=== PATIENT | male | born 1945 | race Two or more races ===

== ENCOUNTER 2018-01-14 17:50 | Emergency (ER) | payer SELFPAY ==
[~2018-01-14] VITALS: Ht 177.8 cm; Wt 80.0 kg
[2018-01-14] MEDS ORDERED: CLON1TAB PO (17:57)
[2018-01-14 20:30] VITALS: BP 123/67
[2018-01-14 20:48] LABS: BASOPHILS % 1.1 % (0.0-2.0); EOSINOPHILS % 3.2 % (0.0-5.0); HEMATOCRIT. 28.7 % (42.0-52.0); HEMOGLOBIN. 10.1 g/dL (14.0-18.0); LYMPHOCYTES % 18.3 % (20.0-50.0); MEAN CORPUSCULAR HEMOGLOBIN 32.7 pg (28.0-32.0); MONOCYTES % 7.6 % (2.0-8.0); NEUTROPHILS % 69.8 % (40.0-76.0); PLATELET 142 x1000/uL (130-400); RED BLOOD CELL COUNT 3.08 mill/uL (4.7-6.1); RED CELL DISTRIBUTION WIDTH 14.4 % (11.6-14.6)
[2018-01-14 20:56] LABS: CHLORIDE 104 mEq/L (98-107)
[2018-01-14 21:00] LABS: BG BASE EXCESS -3.4 mmol/L (-2.0-2.0); BG CARBOXYHEMOGLOBIN 2.7 % (0.5-1.5); BG DEOXYHEMOGLOBIN 6.1 % (0.0-5.0); BG FRACTION INSPIRED OXYGEN 21; BG HCO3 ACT 20.4 mmol/L (22.0-26.0); BG METHEMOGLOBIN 0.1 % (0.0-1.5); BG OXYGEN SATURATION 93.7 % (92.0-98.5); BG OXYHEMOGLOBIN 91.1 % (94.0-97.0); BG PCO2 32.4 mmHg (35.0-45.0); BG PH 7.416 (7.350-7.450); BG PO2 66.6 mmHg (75.0-100.0); BG SAMPLE SITE LEFT RADIAL; BG TOTAL HEMOGLOBIN 11.1 g/dL (12.0-18.0); BG VENT MODE ROOM AIR
[2018-01-14] MEDS ORDERED: POTASSIUM CHLORIDE 20MEQ TABLET SR PO ONE (21:00)
[2018-01-14 21:02] LABS: ETHANOL BLOOD < 10 mg/dL; INR 1.1; PARTIAL THROMBOPLASTIN TIME 30.6 sec (23.4-31.0)
[2018-01-14 21:05] LABS: CREATINE KINASE MB FRACTION 3.5 ng/mL (0.5-3.6)
[2018-01-14 21:07] LABS: CREATINE KINASE 114 IU/L (39-308)
[2018-01-14 21:09] LABS: VALPROIC ACID < 3.0 ug/mL (50-100)
[2018-01-14 21:13] LABS: PHENOBARBITAL < 2.1 ug/mL (15.0-40.0)
[2018-01-14 21:17] LABS: CARBAMAZEPINE < 0.5 ug/mL (4-12)
== END 2018-01-14 21:34 | disposition left against medical advice (07) ==
LOC: ER 17:50 → EDBEDREQ 18:59 → ER 21:34 → CANBEDREQ 22:11
DX: T40.3X1A Poisoning by methadone, accidental (unintentional), initial encounter (principal); G92 Toxic encephalopathy; Y92.89 Other specified places as the place of occurrence of the external cause; D64.9 Anemia, unspecified; E87.8 Other disorders of electrolyte and fluid balance, not elsewhere classified
CPT/HCPCS: 36415; 36600; 70450; 71045; 80053; 80156; 80165; 80184; 80185; 80307; 80329; 82375; 82550; 82553; 82805; 83735; 84443; 84484; 85025; 85610; 85730; 93005; 99285; G0482